=== PATIENT | male | born 1970 | race Asian ===

== ENCOUNTER 2024-02-01 06:55 | Emergency (ER) | payer MEDICAID, OTHER ==
[~2024-02-01] VITALS: Ht 165.1 cm; Wt 70.0 kg
[2024-02-01 06:59] VITALS: O2SAT 98
[2024-02-01 07:33] LABS: BASOPHILS % 1.6 % (0.0-2.0); CHLORIDE 97 mEq/L (98-107); EOSINOPHILS % 7.5 % (0.0-5.0); HEMATOCRIT. 38.6 % (42.0-52.0); HEMOGLOBIN. 12.7 g/dL (14.0-18.0); LYMPHOCYTES % 24.8 % (20.0-50.0); MEAN CORPUSCULAR HEMOGLOBIN 30.3 pg (28.0-32.0); MEAN CORPUSCULAR HGB CONC 32.9 g/dL (31.0-37.0); MEAN CORPUSCULAR VOLUME 92.2 fL (80.0-94.0); MEAN PLATELET VOLUME 8.8 fl (7.4-10.4); MONOCYTES % 7.4 % (2.0-8.0); NEUTROPHILS % 58.7 % (40.0-76.0); PLATELET 154 x1000/uL (130-400); POTASSIUM 3.9 mEq/L (3.5-5.1); RED BLOOD CELL COUNT 4.18 mill/uL (4.7-6.1); RED CELL DISTRIBUTION WIDTH 15.9 % (11.6-14.6); SODIUM 135 mEq/L (136-145); WHITE BLOOD COUNT 4.6 x1000/uL (4.5-11.0)
[2024-02-01 07:34] LABS: CALCIUM 9.3 mg/dL (8.7-10.4); CARBON DIOXIDE 32 mEq/L (21-32)
[2024-02-01 07:39] LABS: CREATININE 4.4 mg/dL (0.6-1.3); GLUCOSE 137 mg/dL (70-105); UREA NITROGEN BLOOD 27 mg/dL (9-23)
[2024-02-01 07:40] LABS: TROPONIN I HIGH SENSITIVITY 14 ng/L (3.0-53)
[2024-02-01] MEDS: NITROGLYCERIN OINT 1GM/INCH UDPKT TD ONE (07:47)
[2024-02-01] MEDS: CLONIDINE 0.1MG TABLET PO ONE (07:47)
[2024-02-01 10:16] LABS: TROPONIN I HIGH SENSITIVITY 15 ng/L (3.0-53)
[2024-02-01 11:43] VITALS: TEMP 36.66960
[2024-02-01 12:37] VITALS: BP 177/87; PULSE 79; RESP 22; O2SAT 99
== END 2024-02-01 12:56 | disposition short-term general hospital (02) ==
LOC: EDBD 06:55 → ER 07:35 → EDBEDREQTM 09:48 → EDBEDREQ 09:48 → ER 12:56
DX: I12.0 Hypertensive chronic kidney disease with stage 5 chronic kidney disease or end stage renal disease (principal); E11.22 Type 2 diabetes mellitus with diabetic chronic kidney disease; N18.6 End stage renal disease
CPT/HCPCS: 36415; 71045; 80048; 84484; 85025; 93005; 99285